=== PATIENT | female | born 1945 | race American Indian/Alaskan Native ===

== ENCOUNTER 2019-04-05 13:45 | Outpatient (CLI) | payer MEDICARE, OTHER ==
--- NOTE | 2019-04-05 14:26 | XRay Report ---
Right foot, 3 views INDICATION: PLANTAR FASCITIS. COMPARISON: None. IMPRESSION: No acute osseous or soft tissue abnormality. Mild osteoarthritic changes are identifi ed at the first metatarsophalangeal joint. No erosive joint pathology. No plantar spur. There are sub tle calcifications overlying the proximal plantar fascia on the lateral image. This could be related to chronic plantar fasciitis. Signer Name: Giacomo Nash Jr, MD Signed: 04/05/2019 2:22 PM Workstation Name: [id number]
== END 2019-04-05 13:46 | disposition home or self-care (01) ==
LOC: SPVIMAG 13:45
PROVIDERS: ATTEND Internal Medicine
DX: M19.071 Primary osteoarthritis, right ankle and foot (principal)